=== PATIENT | female | born 1935 | race African-American/Black ===

== ENCOUNTER 2020-12-29 15:17 | Observation (INO) ==
[2020-12-29] MEDS ORDERED: 0.9 % Sodium Chloride 1,000 ML IVC ONE (15:53)
[2020-12-29 16:17] LABS: INR 1.1; Prothrombin Time 13.2 Seconds (9.4-12.1)
[2020-12-29 16:19] LABS: Basophils % 0.3 %; Eosinophils % 0.5 %; Hemoglobin 11.5 g/dL (11.5-15.4); Immature Granulocytes % 0.3 % (0-4); Lymphocytes # 2.6 K/mcL (0.6-4.6); Lymphocytes % 43.8 %; Mean Corpuscular HGB Conc 32.9 g/dL (31.6-35.5); Mean Corpuscular Hemoglobin 25.8 pg (28.0-33.3); Mean Corpuscular Volume 78.7 fL (83.0-100.0); Mean Platelet Volume 9.2 fL (9.4-12.4); Monocytes # 0.5 K/mcL (0.0-1.3); Monocytes % 7.9 %; Neutrophils # 2.8 K/mcL (1.6-8.9); Platelet Count 151 K/mcL (140-400); Red Blood Count 4.45 M/mcL (3.82-4.97); Red Cell Distribution Width 14.6 % (11.5-14.5); Segmented Neutrophils % 47.2 %
[2020-12-29 16:20] LABS: Activated Partial Thrombo Time 22.6 Seconds (26.0-36.0)
[2020-12-29 16:56] LABS: Alanine Aminotransferase 8 Units/L (7-52); Albumin 4.6 g/dL (3.5-5.7); Albumin/Globulin Ratio 1.8 (1.1-2.2); Alkaline Phosphatase 55 Units/L (34-104); Aspartate Amino Transferase 15 Units/L (13-39); BUN/Creatinine Ratio 17 (6-26); Bilirubin,Direct 0.2 mg/dL (0.0-0.2); Bilirubin,Indirect 0.9 mg/dL (0.0-1.0); Bilirubin,Total 1.1 mg/dL (0.3-1.0); Blood Urea Nitrogen 12 mg/dL (8-23); Calcium 9.4 mg/dL (8.6-10.3); Carbon Dioxide 25 mEq/L (23-29); Chloride 104 mEq/L (98-107); Creatine Kinase 67 Units/L (30-223); Ethanol < 10 mg/dL (Less than 10); Globulin 2.5 g/dL (2.4-3.5); Glucose 132 mg/dL (70-105); Osmolality,Calculated 292 (280-300); Potassium 3.9 mEq/L (3.5-5.1); Sodium 140 mEq/L (136-145); Total Protein 7.1 g/dL (6.4-8.9); Troponin I < 0.03 ng/mL (< 0.04); eGFR For African Americans > 60 (> 60); eGFR For Non-African Americans > 60 (> 60)
[2020-12-29 17:09] LABS: Thyroid Stimulating Hormone 1.935 mcIU/mL (0.340-5.600)
[2020-12-29 17:31] LABS: Bilirubin,Urine Negative (Negative); Blood,Urine Negative (Negative); Clarity,Urine Clear (Clear); Color,Urine Light-Yellow (Yellow); Glucose,Urine (UA) Normal (Normal); Ketones,Urine Negative (Negative); Leukocyte Esterase,Urine Negative (Negative); Nitrite,Urine Negative (Negative); PH,Urine 6.5 pH Units (5.0-8.0); Protein,Urine Trace mg/dL (Neg-Trace); Specific Gravity,Urine 1.013 (1.010-1.025); Urobilinogen,Urine Normal (Normal)
[2020-12-29] MEDS ORDERED: Perflutren Lipid Microsphere 1.3 ML in 0.9 % Sodium Chloride 8.7 ML IVP PRN (18:21)
[2020-12-29] MEDS ORDERED: Dextrose Gel 15 GM/37.5 ML TUBE PO PRN ×2 (18:22)
[2020-12-29] MEDS ORDERED: D5% in Water 1,000 ML IVC PRN (18:22)
[2020-12-29] MEDS ORDERED: *HR* Dextrose 50 % in Water (Vial) 50 ML VIAL IVP PRN (18:22)
[2020-12-29] MEDS ORDERED: Naloxone 0.4 MG/ML INJ IVP PRN (18:24)
[2020-12-29] MEDS ORDERED: Ondansetron 4 MG/2 ML VIAL IVP PRN (18:24)
[2020-12-29] MEDS: Aspirin Enteric Coated 81 MG Tablet PO SCH (19:30)
[2020-12-29] MEDS ORDERED: Insulin LISPRO 300 UNITS/3 ML VIAL SUBQ SCH (21:00)
[2020-12-30 05:36] LABS: Hematocrit 33.6 % (35.3-44.9); Hemoglobin 11.1 g/dL (11.5-15.4); Mean Corpuscular Volume 78.7 fL (83.0-100.0); Mean Platelet Volume 8.8 fL (9.4-12.4); Platelet Count 140 K/mcL (140-400); Red Blood Count 4.27 M/mcL (3.82-4.97); Red Cell Distribution Width 14.5 % (11.5-14.5); White Blood Count 6.7 K/mcL (4.3-11.1)
[2020-12-30 05:59] LABS: % Iron Saturation 17 % (15-50); BUN/Creatinine Ratio 16 (6-26); Blood Urea Nitrogen 10 mg/dL (8-23); Carbon Dioxide 28 mEq/L (23-29); Chloride 104 mEq/L (98-107); Chol/HDL Ratio 3.1 (0-4.9); Cholesterol 179 mg/dL (< 200); Glucose 116 mg/dL (70-105); HDL Cholesterol 57 mg/dL (40-59); Iron 48 mcg/dL (50-170); LDL Cholesterol,Calculated 99 mg/dL (< 100); Osmolality,Calculated 290 (280-300); Potassium 3.6 mEq/L (3.5-5.1); Sodium 140 mEq/L (136-145); Transferrin 198 mg/dL (203-362); Triglycerides 115 mg/dL (< 150); eGFR For African Americans > 60 (> 60); eGFR For Non-African Americans > 60 (> 60)
[2020-12-30 06:06] LABS: Troponin I 0.04 ng/mL (< 0.04)
[2020-12-30 06:21] LABS: Ferritin 241 ng/mL (10-120)
[2020-12-30] MEDS: Insulin LISPRO 300 UNITS/3 ML VIAL SUBQ SCH ×2 (08:00→12:43)
[2020-12-30] MEDS: Aspirin Enteric Coated 81 MG Tablet PO SCH (08:01)
[2020-12-30 08:03] LABS: Estimated Average Glucose 148 mg/dl; Hemoglobin A1C 6.8 %
[2020-12-30] MEDS ORDERED: Cyanocobalamin (B-12) 1,000 MCG/ML VIAL IM ONE (08:19)
[2020-12-30] MEDS ORDERED: atenoloL 50 MG TABLET PO SCH (09:00)
[2020-12-30] MEDS ORDERED: Cyanocobalamin (B-12) 1,000 MCG TABLET PO SCH (09:00)
[2020-12-30 11:34] VITALS: BP 147/72
== END 2020-12-30 18:00 | disposition home health service (06) ==
LOC: EMEROOARM 15:17 → 3BNU 15:17 → SUATTDRO 17:41 → 3BNU 18:13
PROVIDERS: ADMIT Student in an Organized Health Care Education/Training Program; ATTEND Internal Medicine